=== PATIENT | male | born 1995 | race Caucasian/White ===

== ENCOUNTER 2022-05-04 10:00 | Emergency (ER) | payer BC, OTHER ==
[2022-05-04 10:12] VITALS: BP 141/88; PULSE 62; RESP 18; TEMP 97.7
[2022-05-04] MEDS ORDERED: LIDOCAINE 1% INJ 10MG/ML (20 ML MDV) SQ STA (10:26)
--- NOTE | 2022-05-04 10:30 | ED ---
Wound/Laceration HPI - General Chief Complaint: Wound/Laceration Stated Complaint: Hnad injury, [facility] Time Seen by Provider: 05/04/22 10:25 Source: patient, RN notes reviewed Mode of arrival: ambulatory Limitations: no limitations - History of Present Illness Initial Comments: Patient is a 26-year-old male presents to the emergency room with comp laints of a laceration to his left hand between his index finger and thumb. 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 He denies any numbness or tingling, he denies any range of motion impairment or tenderness in the hand not related to the laceration. He reports that his tetanus vaccination is up-to-date. He denies any significant past medical history and he is not taking any medications on a regular basis. - Related Data Home Medications Medication Instructions Recorded Confirmed No Known Home Medications 01/21/15 01/21/15 Allergies Allergy/AdvReac Type Severity Reaction Status Date / Time No Known Allergies Allergy Verified 05/04/22 10:12 Review of Systems ROS Statement: Those systems with pertinent positive or pertinent negative responses have been documented in the HPI. ROS Other: All systems not noted in ROS Statement are negative. Past Medical History Past Medical History: No Reported History History of Any Multi-Drug Resistant Organisms: None Reported Past Surgical History: No Surgical Hx Reported Past Psychological History: No Psychological Hx Reported Past Alcohol Use History: None Reported Past Drug Use History: None Reported General Exam Limitations: no limitations General appearance: alert, in no apparent distress Head exam: Present: atraumatic, normocephalic, normal inspection Eye exam: Present: normal appearance, PERRL, EOMI. Absent: scleral icterus, conjunctival injection, periorbital swelling ENT exam: Present: normal exam, mucous membranes moist Neck exam: Present: normal inspection Respiratory exam: Absent: respiratory distress, accessory muscle use Left Hand Wrist exam: Present: full ROM, laceration. Absent: swelling, ecchymosis, deformity, crepitus, dislocation, erythema, amputation, nail avulsion Vascular: Absent: vascular compromise Back exam: Present: normal inspection Neurological exam: Present: alert, oriented X3, CN II-XII intact Psychiatric exam: Present: normal affect, normal mood Skin exam: Present: other (Laceration as indicated above) Course Vital Signs 05/04/22 10:08 Temperature 97.7 F Pulse Rate 62 Respiratory 18 Rate Blood Pressure 141/88 O2 Sat by Pulse 98 Oximetry Procedures - Laceration Laceration #1 Consent Obtained: verbal consent Indication: laceration Site: hand Size (cm): 3 Description: linear, clean Depth: simple, single layer Anesthetic Used: lidocaine 1% Anesthesia Technique: local infiltration Pre-repair: irrigated extensively Type of Sutures: nylon Size of Sutures: 4-0 Number of Sutures: 5 Technique: simple, interrupted Patient Tolerated Procedure: well, no complications Medical Decision Making - Medical Decision Making 26-year-old male presenting to the emergency room with a laceration to his left hand that 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 Vaccinations are up-to-date. No indication for diagnostic imaging or laboratory studies. Closed with sutures without complications. No indication for antibiotics or vaccinations. Discussed localized wound care and follow-up with primary care provider in 7-10 days for suture removal. If any signs or symptoms of infection please seek immediate medical attention as appropriate. Case discussed with Dr. Dominguez. Disposition Clinical Impression: Laceration Disposition: HOME SELF-CARE Condition: Stable Instructions (If sedation given, give patient instructions): Care For Your Stitches (ED), Laceration (ED) Additional Instructions: Please keep wound clean and dry. May return to work. Avoid heavy lifting with left hand into the wound completely healed. Please monitor for signs and symptoms of infection and if any occur please seek medical attention as appropri ate. Please follow-up with your primary care provider for suture removal in 7-10 days. Please return to the Emergency Department if symptoms worsen or any other concerns. Is patient prescribed a controlled substance at d/c from ED?: No Referrals: None,Stated [Primary Care Provider] - 1-2 days Time of Disposition: 11:00
== END 2022-05-04 11:10 | disposition home or self-care (01) ==
LOC: EC 10:00
DX: S61.412A Laceration without foreign body of left hand, initial encounter (principal); W27.8XXA Contact with other nonpowered hand tool, initial encounter; Y92.89 Other specified places as the place of occurrence of the external cause; Y99.0 Civilian activity done for income or pay
CPT/HCPCS: 99282; 12002; J2001